=== PATIENT | female | born 1985 | race Caucasian/White ===

== ENCOUNTER → 2016-11-23 | Outpatient (CLI) | payer OTHER ==
--- NOTE | 2016-11-23 16:11 | US ---
EXAMINATION TYPE: US pelvic complete DATE OF EXAM: 11/23/2016 3:59 PM COMPARISON: NONE CLINICAL HISTORY: Uterine pain N94.89 R10.2 Female pelvic pain. Uterine cramping TECHNIQUE: Transabdominal examination was performed. Date of LMP: Patient does not have cycles, on the depo shot. EXAM MEASUREMENTS: Uterus: 8.5 x 2.4 x 4.3 cm Endometrial Stripe: 0.7 cm Right Ovary: 3.4 x 1.2 x 3.3 cm Left Ovary: 2.9 x 1.4 x 4.3 cm TECHNOLOGIST IMPRESSION: wnl 1. Uterus: Anteverted wnl 2. Endometrium: measures 0.7 cm, patient does not have cycles, on depo shot 3. Right Ovary: wnl 4. Left Ovary: wnl 5. Bilateral Adnexa: wnl 6. Posterior cul-de-sac: no free fluid IMPRESSION: Normal pelvic ultrasound.
== END | disposition home or self-care (01) ==
LOC: RADUSWWP 15:40
PROVIDERS: ATTEND Family Medicine
DX: R10.2 Pelvic and perineal pain (principal); N94.89 Other specified conditions associated with female genital organs and menstrual cycle
CPT/HCPCS: 76856